=== PATIENT | female | born 1975 | race Hispanic/Latino ===

== ENCOUNTER 2017-08-22 06:57 | Day surgery (SDC) | payer BC ==
[2017-08-22 09:07] LABS: INR 0.94 (0.87-1.13)
[2017-08-22 09:08] LABS: Partial Thromboplastin Time 32.7 Sec. (24.2-36.6)
--- NOTE | 2017-08-22 11:55 | Short Stay Summary ---
Short Stay Documentation Date of service: 08/22/17 - History Past Medical History: hypertension, other (obesity) - Allergies and Medications Current Medications: Allergies chicken derived Allergy (Unverified 08/22/17 06:59) Hives Sulfa (Sulfonamide Antibiotics) Allergy (Unverified 08/22/17 06:58) Hives vancomycin Allergy (Unverified 08/22/17 06:59) Itching wheat Allergy (Unverified 08/22/17 06:59) Itching Home Medications Medication Instructions Recorded Confirmed Last Taken Type Metoprolol/Hydrochlorothiazide 1 tab PO DAILY 08/22/17 08/22/17 08/22/17 05:30 History [Metoprolol-Hctz 100-25 mg Tab] Phentermine HCl [Adipex-P] 37.5 mg PO DAILY 08/22/17 08/22/17 08/22/17 05:30 History Sertraline HCl [Sertraline HCl] 100 mg PO DAILY 08/22/17 08/22/17 08/22/17 05: 30 History Simvastatin [Simvastatin] 20 mg PO QHS 08/22/17 08/22/17 08/21/17 22:00 History - Physical exam General appearance: no acute distress, obese - Brief post op/procedure progress note Date of procedure: 08/22/17 Pre-op diagnosis: Pseudotumor cerebri Post-op diagnosis: same Procedure: FL guided Lumbar puncture Anesthesia: local Findings: 16 cc of clear CSF obtained, though initial tap blood-tinged. Surgeon: PATO ROSENBERG Estimated blood loss: none Specimen disposition: to lab Condition: stable - Disposition Condition at discharge: Stable Disposition: [id number] TO HOME OR SELFCARE
[2017-08-22 12:37] VITALS: BP 160/82
[2017-08-22 12:57] LABS: Appearance,CSF Clear; White Blood Cell,CSF 5 /mm3 (1-10)
[2017-08-22 13:47] LABS: Glucose,CSF 46 mg/dL
--- NOTE | 2017-08-22 14:02 | Fluoroscopy Report ---
FLUORO GUIDED LUMBAR PUNCTURE INDICATION: Pseudotumor cerebri. COMPARISON: None similar at this institution. FINDINGS: After obtaining risks and benefits to patient, written informed consent obtained. Patient positioned prone on the fluoroscopy table. An appropriate skin site marked using fluoro guidance. Patient prepped and draped in the usual sterile fashion. 1% lidocaine used for local anesthesia. A 22-gauge long spinal needle advanced into the thecal sac at L4 with initial blood tinged tap with subsequent clear CSF obtained. Opening pressure measured at 29 cm of water. Total of approximately 16 cc CSF retrieved and sent to the lab in 4 separate test tubes. Patient tolerated the procedure well and left the department in stable condition. CONCLUSION: Status post lumbar puncture, as described. Opening pressure recorded at [address] Radford present for and performed the entire procedure. Thank you for the opportunity to participate in this patient's care.
[2017-08-22 14:25] LABS: CSF Diff Status Complete
== END 2017-08-22 12:45 | disposition home or self-care (01) ==
LOC: CATHLABREC 06:57 → EDSTATUS 08:00 → CATHLABREC 12:45
PROVIDERS: ATTEND Specialist
DX: G93.2 Benign intracranial hypertension (principal); Z79.01 Long term (current) use of anticoagulants; Z79.899 Other long term (current) drug therapy
CPT/HCPCS: 36415; 62270; 77003; 82947; 84160; 85610; 85730; 87116; 89051

== ENCOUNTER 2017-10-19 19:01 | Emergency (ER) | payer BC | END 2017-10-20 04:03 | disposition left against medical advice (07) | LOC: ED 19:01 | DX: R10.9 Unspecified abdominal pain (principal); Z53.21 Procedure and treatment not carried out due to patient leaving prior to being seen by health care provider ==